=== PATIENT | female | born 1995 | race Two or more races ===

== ENCOUNTER 2023-09-16 17:55 | Emergency (ER) | payer OTHER ==
[~2023-09-16] VITALS: Ht 165.1 cm; Wt 95.3 kg
[2023-09-16] MEDS ORDERED: LORAZEPAM 0.5 MG TABLET ONE (18:33)
[2023-09-16] MEDS ORDERED: TRAMADOL HCL 50 MG TABLET ONE (18:33)
[2023-09-16] MEDS: LORAZEPAM 1 MG TABLET PO ONE (18:55)
[2023-09-16] MEDS: TRAMADOL HCL 50 MG TABLET PO ONE (18:55)
[2023-09-16] MEDS ORDERED: KETO10TA2 PO (20:36)
[2023-09-16] MEDS ORDERED: CYCL5TAB PO (20:36)
[2023-09-16] MEDS ORDERED: KETOROLAC TROMETHAMINE INJ 30 MG/ML VIAL ONE (20:52)
[2023-09-16] MEDS ORDERED: ACETAMINOPHEN ES 500 MG TABLET ONE (20:53)
[2023-09-16] MEDS: KETOROLAC TROMETHAMINE INJ 60 MG/2 ML VIAL IM ONE (21:14)
[2023-09-16] MEDS: ACETAMINOPHEN ES 500 MG TABLET PO ONE (21:14)
[2023-09-16 21:21] VITALS: BP 117/91; TEMP 98.2; O2SAT 97
== END 2023-09-16 21:22 | disposition home or self-care (01) ==
LOC: ER 18:03
DX: S09.8XXA Other specified injuries of head, initial encounter (principal); M54.50 Low back pain, unspecified; M54.2 Cervicalgia; W20.8XXA Other cause of strike by thrown, projected or falling object, initial encounter; Y93.89 Activity, other specified; Y92.89 Other specified places as the place of occurrence of the external cause; Y99.0 Civilian activity done for income or pay
CPT/HCPCS: 99285; 72125; 96372; 70450; 72131; J1885